=== PATIENT | female | born 1945 | race Caucasian/White ===

== ENCOUNTER → 2020-11-19 | Outpatient (CLI) | payer MEDICARE ==
[~2020-11-19] MED LIST: AMLODIPINE BESYL5 MG PO; CYMBALTA20 MG; FOLIC ACID1 MG PO; LEVOTHYROXIN0.125 M1 PO; OMEPRAZOLE 20 M20 MG PO; SIMVASTATIN40 MG PO; TOPROL XL50 MG PO; VITAMIN D 5050000 I1 PO
== END ==
LOC: M.RAD 13:44
PROVIDERS: ATTEND Internal Medicine
DX: Z12.31 Encounter for screening mammogram for malignant neoplasm of breast (principal)

== ENCOUNTER → 2020-12-10 | Outpatient (CLI) | payer MEDICARE | LOC: M.ULTRA 10:39 | PROVIDERS: ATTEND Internal Medicine | DX: N63.10 Unspecified lump in the right breast, unspecified quadrant (principal) ==